=== PATIENT | female | born 1965 | race Asian ===

== ENCOUNTER 2018-03-11 00:51 | Emergency (ER) | payer OTHER ==
[2018-03-11] MEDS ORDERED: SODIUM CHLORIDE 0.9% 1,000 ML IV ONE (01:53)
[2018-03-11] MEDS ORDERED: DEXAMETHASONE 10 MG/ML VIAL IVP STA (01:53)
[2018-03-11] MEDS ORDERED: cefTRIAXone 1 GM in SODIUM CHLORIDE 0.9% MINIBAG 100 ML IV STA (01:53)
[2018-03-11] MEDS ORDERED: KETOROLAC 60 MG/2 ML VIAL IVP STA (01:54)
--- NOTE | 2018-03-11 01:56 | ED Physician Documentation ---
History of Present Illness - Stated complaint Stated Complaint: CARRASCO,WEAKNESS - Chief complaint Chief Complaint: Critical Care - History obtained from History obtained from: Patient, Family - History of Present Illness Timing: How many weeks ago (1) - Additonal information Additional information: Previously well 52-year-old female with a history of hypertension has developed a headache over the past week. She has noticed that her blood pressures been elevated as well. Other specific symptoms with the exception of some palpitations in her chest. When asked specifically she does have some lightheadedness on standing and specifically she denies any nasal congestion or cough. Review of Systems Constitutional: reports: Fatigue. denies: Fever Eyes: denies: Decreased vision Ears: denies: Ear pain Nose: denies: Rhinorrhea / runny nose, Congestion Throat: denies: Dental pain / toothache, Sore throat Cardiac: reports: Palpitations. denies: Chest pain / pressure, Pedal edema, Calf pain Respiratory: denies: Dyspnea, Cough, Wheezing GI: denies: Abdominal Pain, Nausea, Vomiting : denies: Dysuria, Frequency Skin: denies: Rash Musculoskeletal: denies: Neck pain, Back pain, Extremity pain Neurologic: reports: Headache. denies: Generalized weakness, Focal weakness, Numbness, Head injury, LOC PD PAST MEDICAL HISTORY - Past Medical History Past Medical History: Yes Cardiovascular: Hypertension - Past Surgical History Past Surgical History: No - Present Medications Home Medications: Ambulatory Orders Medication Instructions Recorded Confirmed Aspirin [Adult Aspirin] 81 mg PO 03/11/18 03/11/18 Losartan Potassium 100 mg PO 03/11/18 - Allergies Allergies/Adverse Reactions: Allergies Allergy/AdvReac Type Severity Reaction Status Date / Time No Known Drug Allergies Allergy Verified 03/11/18 01:04 - Social History Does the pt smoke?: No Smoking Status: Never smoker Does the pt drink ETOH?: No Does the pt have substance abuse?: No - Immunizations Immunizations are current?: Yes - POLST Patient has POLST: No PD ED PE NORMAL - Vitals Vital signs reviewed: Yes (hypertensive ) - General General: Alert and oriented X 3, Well developed/nourished, Other (flat affect with eyes closed (sick role)) - HEENT HEENT: Atraumatic, PERRL, EOMI, Other (There is inflamation along and above the right umbo and this is absent on the left. There is no facial tenderness to the maxillary or frontal sinuses. 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, No motor deficit, No sensory deficit, Normal speech Eye Opening: Spontaneous Motor: Obeys Commands Verbal: Oriented GCS Score: 15 - Psych Psych: Normal mood, Normal affect Results - Vitals Vitals: Vital Signs - 24 hr 03/11/18 00:59 Temperature 36.6 C Heart Rate 94 Respiratory 17 Rate Blood Pressure 182/87 H O2 Saturation 100 Oxygen O2 Source Room air - EKG (time done) 0125 Rate: Rate (enter#) (73) [place]: LAD Ischemia: Normal ST segments Compare to prior EKG: Old EKG unavailable Computer interpretation: Agree with computer - Labs Labs: Laboratory Tests 03/11/18 03/11/18 03/11/18 01:58 02:03 02:03 WBC 8.6 RBC 4.85 Hgb 14.1 Hct 41.8 MCV 86.2 MCH 29.1 MCHC 33.8 RDW 12.5 Plt Count 260 MPV 8.5 Neut # (Auto) 5.8 Lymph # (Auto) 2.1 [place] # (Auto) 0.5 Eos # (Auto) 0.1 Baso # (Auto) 0.1 Absolute Nucleated RBC 0.01 Nucleated RBC % 0.1 Sodium 140 Potassium 3.6 Chloride 106 Carbon Dioxide 26 Anion Gap 8.0 BUN 12 Creatinine 0.6 Estimated GFR (MDRD) 104 Glucose 129 H Calcium 9.4 Total Bilirubin 0.5 AST 25 ALT 25 Alkaline Phosphatase 98 Troponin I Total Protein 8.1 Albumin 4.2 Globulin 3.9 Albumin/Globulin Ratio 1.1 Lipase 31 Urine Color COLORLESS Urine Clarity CLEAR Urine pH 7.0 Ur Specific [place] <=1.005 Urine Protein NEGATIVE Urine Glucose (UA) NEGATIVE Urine Ketones NEGATIVE Urine Occult Blood SMALL H Urine Nitrite NEGATIVE Urine Bilirubin NEGATIVE Urine Urobilinogen 0.2 (NORMAL) Ur Leukocyte Esterase TRACE H Urine RBC 0-5 Urine WBC 0-3 Ur Squamous Epith Cells FEW Squamous Urine Bacteria Rare Ur Microscopic Review INDICATED Urine Culture Comments INDICATED 03/11/18 02:03 WBC RBC Hgb Hct MCV MCH MCHC RDW Plt Count MPV Neut # (Auto) Lymph # (Auto) [place] # (Auto) Eos # (Auto) Baso # (Auto) Absolute Nucleated RBC Nucleated RBC % Sodium Potassium Chloride Carbon Dioxide Anion Gap BUN Creatinine Estimated GFR (MDRD) Glucose Calcium Total Bilirubin AST ALT Alkaline Phosphatase Troponin I < 0.04 Total Protein Albumin Globulin Albumin/Globulin Ratio Lipase Urine Color Urine Clarity Urine pH Ur Specific [place] Urine Protein Urine Glucose (UA) Urine Ketones Urine Occult Blood Urine Nitrite Urine Bilirubin Urine Urobilinogen Ur Leukocyte Esterase Urine RBC Urine WBC Ur Squamous Epith Cells Urine Bacteria Ur Microscopic Review Urine Culture Comments Procedures - IVC sono (time) 0150 Bedside IVC sono: IVC measures (cm) (0.88), IVC collapsed c insp (cm) (complete), Dehydration (est 1-2 liter deficit) PD MEDICAL DECISION MAKING - ED course Complexity details: reviewed results, re-evaluated patient, considered differential, d/w patient, d/w family ED course: Previously well 52-year-old female with a history of hypertension has developed a headache along with her hypertension and feels poorly. She is come to the emergency department tonight after a week of symptoms. She denies any specific cough or nasal congestion but on examination does appear to have a right otitis media and on interrogation of the inferior vena cava she does appear to be dehydrated. She is administered intravenous saline Rocephin and dexamethasone. Departure - Departure Disposition: 01 Home, Self Care Clinical Impression: Dehydration Otitis media Qualifiers: Otitis media type: suppurative Chronicity: acute Laterality: right Recurrence: not specified as recurrent Spontaneous tympanic membrane rupture: without spontaneous rupture Qualified Code(s): H66.001 - Acute suppurative otitis media without spontaneous rupture of ear drum, right ear Condition: Stable Instructions: ED Dehydration, ED Otitis Media Acute Adult Follow-Up: [facility] [Provider Group]
[2018-03-11 02:16] LABS: BILIRUBIN,URINE NEGATIVE (NEGATIVE); GLUCOSE, URINE (UA) NEGATIVE (NEGATIVE); KETONES,URINE (UA) NEGATIVE (NEGATIVE); LEUKOCYTE ESTERASE, URINE TRACE (NEGATIVE); NITRITE,URINE NEGATIVE (NEGATIVE); OCCULT BLOOD,URINE SMALL (NEGATIVE); PROTEIN,URINE NEGATIVE (NEGATIVE); UROBILINOGEN,URINE 0.2 (NORMAL) E.U./dL (NORMAL)
[2018-03-11 02:16] LABS: BASOPHILS # (AUTO) 0.1 10^3/uL (0.0-0.1); BASOPHILS % (AUTO) 1.1 %; EOSINOPHILS # (AUTO) 0.1 10^3/uL (0.0-0.7); EOSINOPHILS % (AUTO) 1.7 %; HGB - HEMOGLOBIN 14.1 g/dL (12.0-16.0); LYMPHOCYTES # (AUTO) 2.1 10^3/uL (1.5-3.5); LYMPHOCYTES % (AUTO) 23.8 %; MEAN CORPUSCULAR HEMOGLOBIN 29.1 pg (27.0-31.0); MEAN CORPUSCULAR HGB CONC 33.8 g/dL (32.0-36.0); MEAN CORPUSCULAR VOLUME 86.2 fL (81.0-99.0); MEAN PLATELET VOLUME 8.5 fL (7.9-10.8); MONOCYTES # (AUTO) 0.5 10^3/uL (0.0-1.0); MONOCYTES % (AUTO) 6.3 %; NEUTROPHILS # (AUTO) 5.8 10^3/uL (1.5-6.6); NEUTROPHILS % (AUTO) 67.1 %; PLT - PLATELET COUNT 260 10^3/uL (130-450); RED BLOOD COUNT 4.85 10^6/uL (4.20-5.40); RED CELL DISTRIBUTION WIDTH 12.5 % (12.0-15.0); WHITE BLOOD COUNT 8.6 x10^3/uL (4.8-10.8)
[2018-03-11 02:22] LABS: ALBUMIN 4.2 g/dL (3.2-5.5); ALBUMIN/GLOBULIN RATIO 1.1 (1.0-2.2); BILIRUBIN,TOTAL 0.5 mg/dL (0.2-1.0); CALCIUM 9.4 mg/dL (8.5-10.3); CREATININE 0.6 mg/dL (0.4-1.0); TOTAL PROTEIN 8.1 g/dL (6.7-8.2)
[2018-03-11 02:24] LABS: BACTERIA,URINE Rare /HPF (None Seen); CLARITY,URINE CLEAR (CLEAR); RBC,URINE 0-5 /HPF (0-5); SQUAMOUS EPITHELIAL CELL,UR FEW Squamous (<= Few)
[2018-03-11 03:16] VITALS: BP 139/82
== END 2018-03-11 03:16 | disposition home or self-care (01) ==
LOC: ED 00:51
DX: E86.0 Dehydration (principal); H66.001 Acute suppurative otitis media without spontaneous rupture of ear drum, right ear; I10 Essential (primary) hypertension
CPT/HCPCS: 36415; 80053; 81001; 81003; 83690; 84484; 85025; 87086; 93005; 96365; 96375; 99283; 99284